=== PATIENT | male | born 1945 | race Native Hawaiian/Other Pacific Islander ===

== ENCOUNTER 2019-01-16 08:09 | Outpatient (CLI) | payer OTHER ==
[~2019-01-16 08:09] MED LIST: ALLO300T23 PO; AMLO2.5T PO; BACTRIM1 TAB PO; BENA10TA3 PO; LEVO500I3 PO; LOPRESSOR100 MG PO; LORAZEPAM0.5 MG OR; METO50TA27 PO; OMEPRAZOLE20 M2 OR; SIMV40TA57 PO; TERAZOSIN10 MG OR
[2019-01-16 08:59] LABS: PLATELET COUNT 272 K/uL (142-355)
[2019-01-16 09:32] LABS: POTASSIUM 4.1 mmol/L (3.6-5.2)
== END 2019-01-16 19:21 | disposition home or self-care (01) ==
LOC: LABW 08:09
PROVIDERS: Internal Medicine
DX: Z00.00 Encounter for general adult medical examination without abnormal findings (principal); E03.9 Hypothyroidism, unspecified; D51.9 Vitamin B12 deficiency anemia, unspecified; E55.9 Vitamin D deficiency, unspecified; E78.2 Mixed hyperlipidemia; Z12.5 Encounter for screening for malignant neoplasm of prostate; R97.20 Elevated prostate specific antigen [PSA]; I10 Essential (primary) hypertension
CPT/HCPCS: 36415; 80053; 80061; 81000; 82306; 82607; 84153; 84443; 84550; 85027

== ENCOUNTER 2019-09-08 09:31 | Emergency (ER) | payer OTHER ==
[~2019-09-08] VITALS: Ht 177.8 cm; Wt 51.7 kg
[2019-09-08 09:52] VITALS: TEMP 97.6
[2019-09-08] MEDS ORDERED: VALS160T2 PO (10:04)
[2019-09-08] MEDS ORDERED: AMLODIPINE BESYLATE PO (10:05)
[2019-09-08] MEDS ORDERED: UNITH DIRECT200 MCG PO (10:06)
[2019-09-08] MEDS ORDERED: KP VITAMIN E100 UNIT PO (10:07)
[2019-09-08] MEDS ORDERED: PANTOPRAZOLE 40MG TA PO (10:07)
[2019-09-08] MEDS ORDERED: METO50TA63 PO (10:07)
[2019-09-08] MEDS ORDERED: TAMS0.4C PO (10:08)
[2019-09-08] MEDS ORDERED: BENZONATATE100 MG PO (10:08)
[2019-09-08] MEDS ORDERED: DUTASTERIDE0.5 MG PO (10:09)
[2019-09-08] MEDS ORDERED: VITAMIN D31000 UNIT PO (10:09)
[2019-09-08 12:12] VITALS: BP 154/78
== END 2019-09-08 12:12 | disposition home or self-care (01) ==
LOC: ED 09:31
PROC: 0T9B70Z Drainage of Bladder with Drainage Device, Via Natural or Artificial Opening (ICD-10-PCS; principal; 2019-09-08)
DX: N13.8 Other obstructive and reflux uropathy (principal)
CPT/HCPCS: 51702; 81000; 99282

== ENCOUNTER 2019-09-12 06:46 | Emergency (ER) | payer OTHER ==
[~2019-09-12] VITALS: Ht 177.8 cm; Wt 97.5 kg
[~2019-09-12 06:46] MED LIST changes: +AMLODIPINE BESYLATE PO; +BENZONATATE100 MG PO; +DUTASTERIDE0.5 MG PO; +KP VITAMIN E100 UNIT PO; +METO50TA63 PO; +PANTOPRAZOLE 40MG TA PO; +TAMS0.4C PO; +UNITH DIRECT200 MCG PO; +VALS160T2 PO; +VITAMIN D31000 UNIT PO
[2019-09-12 06:57] VITALS: TEMP 97.9
[2019-09-12 07:35] VITALS: BP 147/78
== END 2019-09-12 07:35 | disposition home or self-care (01) ==
LOC: ED 06:46
PROC: 0T9B70Z Drainage of Bladder with Drainage Device, Via Natural or Artificial Opening (ICD-10-PCS; principal; 2019-09-12)
DX: N40.1 Benign prostatic hyperplasia with lower urinary tract symptoms (principal); R33.8 Other retention of urine
CPT/HCPCS: 81000; 99283

== ENCOUNTER 2019-09-16 13:29 | Emergency (ER) | payer OTHER ==
[~2019-09-16] VITALS: Ht 177.8 cm; Wt 97.5 kg
[2019-09-16 15:17] VITALS: BP 139/73; TEMP 98.2
== END 2019-09-16 15:23 | disposition home or self-care (01) ==
LOC: ED 13:29
PROC: 0T9B70Z Drainage of Bladder with Drainage Device, Via Natural or Artificial Opening (ICD-10-PCS; principal; 2019-09-16)
DX: T83.031A Leakage of indwelling urethral catheter, initial encounter (principal)
CPT/HCPCS: 51702; 81000; 99282; 99283

== ENCOUNTER 2019-10-13 07:51 | Emergency (ER) | payer OTHER ==
[~2019-10-13] VITALS: Ht 177.8 cm; Wt 97.5 kg
[2019-10-13 09:34] VITALS: BP 108/56; TEMP 98
== END 2019-10-13 09:36 | disposition home or self-care (01) ==
LOC: ED 07:51
PROC: 0T9B70Z Drainage of Bladder with Drainage Device, Via Natural or Artificial Opening (ICD-10-PCS; principal; 2019-10-13)
DX: R33.8 Other retention of urine (principal); Z98.890 Other specified postprocedural states
CPT/HCPCS: 81000; 87088; 99282

== ENCOUNTER 2019-10-16 05:51 | Emergency (ER) | payer OTHER ==
[~2019-10-16] VITALS: Ht 177.8 cm; Wt 97.5 kg
[2019-10-16 06:10] VITALS: TEMP 97.6
[2019-10-16 07:03] VITALS: BP 157/82
== END 2019-10-16 07:05 | disposition home or self-care (01) ==
LOC: ED 05:51
PROC: 0T9B70Z Drainage of Bladder with Drainage Device, Via Natural or Artificial Opening (ICD-10-PCS; principal; 2019-10-16)
DX: R33.8 Other retention of urine (principal); Z98.890 Other specified postprocedural states
CPT/HCPCS: 51702; 99283